=== PATIENT | female | born 1940 | race Caucasian/White ===

== ENCOUNTER 2021-08-12 10:20 | Inpatient (IN) | payer MEDICARE ==
--- NOTE | 2021-08-12 11:01 | XR ---
EXAMINATION TYPE: XR chest 2V DATE OF EXAM: 08/12/2021 COMPARISON: None available HISTORY: Confusion TECHNIQUE: Frontal and lateral views of the chest are obtained. FINDINGS: Prominent interstitial lung markings, possibly age-related versus COPD changes. Unremarkable lungs ot herwise. No sizable pleural effusion or definite pneumothorax. No gross cardiomegaly. Aortic atherosc lerotic calcification. Right glenohumeral arthroplasty. Degenerative changes of the left glenohumeral articulation. Osteopen ia. Resorption of the lateral end of the right clavicle versus separation at the acromioclavicular jaswant int. Degenerative changes of the thoracic spine. IMPRESSION: Age-related pulmonary changes versus COPD changes. No definite acute pulmonary abnormality identified . Incidental findings as described above.
--- NOTE | 2021-08-12 11:17 | CT ---
EXAMINATION TYPE: CT brain wo con DATE OF EXAM: 08/12/2021 COMPARISON: None available HISTORY: Altered mental status. CT DLP: 1060.4 mGycm Automated exposure control for dose reduction was used. TECHNIQUE: CT scan of the brain is performed without IV contrast administration. FINDINGS: Partial empty sella. Suspected small left posterior cerebellar infarct. Brain volume loss changes, li manolo age-related. Bilateral cerebral white matter hypodensities, likely representing mild chronic lino rovascular ischemic changes. Scattered arterial atherosclerotic calcifications. No acute intracranial hemorrhage. No gross acute cortical infarct. No midline shift, herniation or ve ntriculomegaly. Unremarkable patel-white matter differentiation, basal cisterns and CP angles. No mik s space-occupying lesion, vasogenic edema or mass effect. Unremarkable orbits. Chronic inflammatory changes of the maxillary sinuses with previous sinus surger y. Opacified left inferior mastoid air cells. No aggressive bone lesion. IMPRESSION: Left posterior cerebellar small infarct, likely chronic, please correlate clinically. No acute intrac ranial hemorrhage or gross acute cortical infarct. No space-occupying lesion by this nonenhanced CT s can. Incidental findings as described above.
[2021-08-12 11:40] LABS: Basophils % (A) 0 %; Eosinophils # (A) 0.2 k/uL (0-0.7); Eosinophils % (A) 2 %; HCT 32.5 % (34.0-46.0); HGB 10.3 gm/dL (11.4-16.0); Lymphocytes # (A) 0.8 k/uL (1.0-4.8); Lymphocytes % (A) 8 %; MCH 31.3 pg (25.0-35.0); MCHC 31.8 g/dL (31.0-37.0); MCV 98.4 fL (80.0-100.0); Monocytes # (A) 0.8 k/uL (0-1.0); Monocytes % (A) 8 %; Neutrophils # (A) 8.5 k/uL (1.3-7.7); Neutrophils % (A) 81 %; Platelet Count 218 k/uL (150-450); RDW 14.5 % (11.5-15.5); WBC 10.5 k/uL (3.8-10.6)
[2021-08-12 11:55] LABS: ALT 13 U/L (4-34); AST 25 U/L (14-36); African American GFR (CKD) 88 (>60 ml/min/1.73 sqM); Albumin 3.1 g/dL (3.5-5.0); Alcohol <10 mg/dL; Alkaline Phosphatase 58 U/L (38-126); Anion Gap 6 mmol/L; Blood Urea Nitrogen 22 mg/dL (7-17); Calcium 8.4 mg/dL (8.4-10.2); Carbon Dioxide 24 mmol/L (22-30); Chloride 104 mmol/L (98-107); Creatine Kinase 27 U/L (30-135); Glucose 168 mg/dL (74-99); Lipase 54 U/L (23-300); Non-African American GFR(CKD) 76 (>60 ml/min/1.73 sqM); Potassium 4.2 mmol/L (3.5-5.1); Sodium 134 mmol/L (137-145); Total Bilirubin 0.6 mg/dL (0.2-1.3)
--- NOTE | 2021-08-12 12:17 | ED ---
General Adult HPI - General Chief complaint: Recheck/Abnormal Lab/Rx Stated complaint: Abnormal Labs Time Seen by Provider: 08/12/21 10:26 Source: patient, family, RN notes reviewed Mode of arrival: wheelchair Limitations: no limitations - History of Present Illness Initial comments: 79-year-old female sent from the office after evaluation by Dr. Kennedy for evaluation of several issues she was seen at [facility] yesterday found have a leukocytosis additionally the patient has been seen and she is being chased by the level was try to kill her. She also complains of some lower abdominal pain. No fevers chills sweats she is complaining of a frontal headache she also is had diarrhea. Concern for C. diff. Appetite has been equivocal. The current complaints. - Related Data Allergies Allergy/AdvReac Type Severity Reaction Status Date / Time montelukast [From Singulair] Allergy Anaphylaxis Verified 08/12/21 10:29 sulfamethoxazole Allergy Anaphylaxis Verified 08/12/21 10:29 [From Bactrim] trimethoprim [From Bactrim] Allergy Anaphylaxis Verified 08/12/21 10:29 Review of Systems ROS Statement: Those systems with pertinent positive or pertinent negative responses have been documented in the HPI. ROS Other: All systems not noted in ROS Statement are negative. Past Medical History Past Medical History: Dementia, Hyperlipidemia History of Any Multi-Drug Resistant Organisms: None Reported Past Surgical History: Appendectomy, Orthopedic Surgery, Tonsillectomy, Tubal Ligation Additional Past Surgical History / Comment(s): sinus cancerous polyps Past Psychological History: No Psychological Hx Reported Smoking Status: Never smoker Past Alcohol Use History: None Reported Past Drug Use History: None Reported General Exam - General Exam Comments Initial Comments: This is a well-developed well-nourished awake alert female Limitations: no limitations General appearance: alert, in no apparent distress Head exam: Present: atraumatic, normocephalic, normal inspection Eye exam: Present: normal appearance, PERRL, EOMI. Absent: scleral icterus, conjunctival injection, periorbital swelling ENT exam: Present: mucous membranes dry Neck exam: Present: normal inspection. Absent: tenderness, meningismus, lymphadenopathy Respiratory exam: Present: normal lung sounds bilaterally. Absent: respiratory distress, wheezes, rales, rhonchi, stridor Cardiovascular Exam: Present: regular rate, normal rhythm, normal heart sounds. Absent: systolic murmur, diastolic murmur, rubs, gallop, clicks GI/Abdominal exam: Present: soft, tenderness (Tenderness over lower abdomen and left lower quadrant palpation no overt guarding rebound masses or bruits), normal bowel sounds. Absent: distended, guarding, rebound, rigid Rectal exam: Present: deferred Extremities exam: Present: normal inspection, full ROM, normal capillary refill. Absent: tenderness, pedal edema, joint swelling, calf tenderness Back exam: Present: normal inspection Neurological exam: Present: alert, oriented X3, CN II-XII intact Psychiatric exam: Present: anxious, other (Patient does state that the double was trying to kill her.) Skin exam: Present: warm, dry, intact, normal color. Absent: rash Course Vital Signs 08/12/21 08/12/21 08/12/21 10:22 11:28 12:00 Temperature 97.8 F Pulse Rate 64 61 57 L Respiratory 18 16 18 Rate Blood Pressure 93/58 114/43 102/55 O2 Sat by Pulse 99 98 95 Oximetry EKG Findings - EKG Results: EKG: interpreted by YOLI, sinus rhythm (Sinus bradycardia rate of 54. Interval 193 QRS duration 83 QT since QTC 440/425 moderate voltage criteria for LVH) Medical Decision Making - Medical Decision Making I did discuss findings with the patient family as well as with Dr. Storey patient will be admitted place an IV antibiotics addition due to the other complaints psychiatry will also be consulted. - Lab Data Result diagrams: 08/12/21 11:32 08/12/21 11:32 Lab Results 08/12/21 08/12/21 08/12/21 Range/Units 11:32 11:32 11:32 WBC 10.5 (3.8-10.6) k/uL RBC 3.30 L (3.80-5.40) m/uL Hgb 10.3 L (11.4-16.0) gm/dL Hct 32.5 L (34.0-46.0) % MCV 98.4 (80.0-100.0) fL MCH 31.3 (25.0-35.0) pg MCHC 31.8 (31.0-37.0) g/dL RDW 14.5 (11.5-15.5) % Plt Count 218 (150-450) k/uL MPV 8.0 Neutrophils % 81 % Lymphocytes % 8 % Monocytes % 8 % Eosinophils % 2 % Basophils % 0 % Neutrophils # 8.5 H (1.3-7.7) k/uL Lymphocytes # 0.8 L (1.0-4.8) k/uL Monocytes # 0.8 (0-1.0) k/uL Eosinophils # 0.2 (0-0.7) k/uL Basophils # 0.0 (0-0.2) k/uL Sodium 134 L (137-145) mmol/L Potassium 4.2 (3.5-5.1) mmol/L Chloride 104 (98-107) mmol/L Carbon Dioxide 24 (22-30) mmol/L Anion Gap 6 mmol/L BUN 22 H (7-17) mg/dL Creatinine 0.75 (0.52-1.04) mg/dL Est GFR (CKD-EPI)AfAm 88 (>60 ml/min/1.73 sqM) Est GFR (CKD-EPI)NonAf 76 (>60 ml/min/1.73 sqM) Glucose 168 H (74-99) mg/dL Calcium 8.4 (8.4-10.2) mg/dL Total Bilirubin 0.6 (0.2-1.3) mg/dL AST 25 (14-36) U/L ALT 13 (4-34) U/L Alkaline Phosphatase 58 (38-126) U/L Ammonia <9 (<30) umol/L Creatine Kinase 27 L (30-135) U/L Troponin I (0.000-0.034) ng/mL Total Protein 6.0 L (6.3-8.2) g/dL Albumin 3.1 L (3.5-5.0) g/dL Lipase 54 (23-300) U/L Serum Alcohol <10 mg/dL 08/12/21 Range/Units 11:32 WBC (3.8-10.6) k/uL RBC (3.80-5.40) m/uL Hgb (11.4-16.0) gm/dL Hct (34.0-46.0) % MCV (80.0-100.0) fL MCH (25.0-35.0) pg MCHC (31.0-37.0) g/dL RDW (11.5-15.5) % Plt Count (150-450) k/uL MPV Neutrophils % % Lymphocytes % % Monocytes % % Eosinophils % % Basophils % % Neutrophils # (1.3-7.7) k/uL Lymphocytes # (1.0-4.8) k/uL Monocytes # (0-1.0) k/uL Eosinophils # (0-0.7) k/uL Basophils # (0-0.2) k/uL Sodium (137-145) mmol/L Potassium (3.5-5.1) mmol/L Chloride (98-107) mmol/L Carbon Dioxide (22-30) mmol/L Anion Gap mmol/L BUN (7-17) mg/dL Creatinine (0.52-1.04) mg/dL Est GFR (CKD-EPI)AfAm (>60 ml/min/1.73 sqM) Est GFR (CKD-EPI)NonAf (>60 ml/min/1.73 sqM) Glucose (74-99) mg/dL Calcium (8.4-10.2) mg/dL Total Bilirubin (0.2-1.3) mg/dL AST (14-36) U/L ALT (4-34) U/L Alkaline Phosphatase (38-126) U/L Ammonia (<30) umol/L Creatine Kinase (30-135) U/L Troponin I 0.022 (0.000-0.034) ng/mL Total Protein (6.3-8.2) g/dL Albumin (3.5-5.0) g/dL Lipase (23-300) U/L Serum Alcohol mg/dL - Radiology Data Radiology results: report reviewed (Imaging reviewed evidence of diverticulitis and a CAT scan please see the complete results otherwise no definite acute changes seen on other imaging), image reviewed Disposition Clinical Impression: Acute diverticulitis, Abdominal pain, Delusional disorder, Dehydration Disposition: ADMITTED IP TO THIS HOSP Condition: Fair Referrals: Andrew Storey MD [Primary Care Provider] - 1-2 days
--- NOTE | 2021-08-12 13:09 | CT ---
EXAMINATION TYPE: CT abdomen pelvis w con DATE OF EXAM: 08/12/2021 COMPARISON: None available HISTORY: Abdominal pain CT DLP: 733.5 mGycm Automated exposure control for dose reduction was used. TECHNIQUE: Helical acquisition of images was performed from the lung bases through the pelvis. CONTRAST: Performed without Oral Contrast and with IV Contrast, patient injected with 100 mL of Isovue 300. FINDINGS: LUNG BASES: Bilateral basal pulmonary reticulations and minimal fibrotic changes. Cardiomegaly. Coron godfrey arterial calcifications. LIVER/GB: No significant abnormality is appreciated. PANCREAS: Atrophic SPLEEN: Splenic calcifications likely related to previous granulomatous infection. ADRENALS: No significant abnormality is seen. KIDNEYS: No significant abnormality is seen. FREE AIR: No free air is visualized. RETROPERITONEAL ADENOPATHY: None visualized PELVIC ADENOPATHY: None visualized. OSSEOUS STRUCTURES: Osteopenia. Degenerative changes of the lower thoracic and lumbar spine with ant erolisthesis of L4 over L5 and to a lesser extent L3 over L4. BOWEL: Suspected small sliding hiatal hernia. Unremarkable nondistended stomach and duodenum. Marked ly thickened superior aspect of the rectum and the sigmoid colon with significant surrounding fat str anding, reactive fluid and peritoneal reflection thickening with suspected adhesions between the sigm oid colon, left adnexa and the posterior aspect of the uterus. This is suggestive of acute diverticul itis of the sigmoid colon. No signs of perforation or definite abscess formation. Tiny cyst in each o vary which can be assessed by pelvic ultrasound. Inflammatory changes are seen surrounding the right ovary with possible adhesions between the right ovary and the adjacent small bowel loops. No evidence of bowel obstruction. Grossly unremarkable remainder of the colon. OTHER: Aortic atherosclerotic calcifications. Perirectal fluid is noted. IMPRESSION: Findings are suggestive of severe diverticulitis of the sigmoid colon with possible adhesions between the sigmoid colon, uterus and left adnexa. Suspected inflammatory changes surrounding the right ovar y/adnexa with possible adhesions between the right adnexa and the small bowel. No evidence of bowel o bstruction, signs of perforation or definite abscess formation. Recommend clinical correlation and saba rgical consultation. Other incidental findings as described above.
[2021-08-12] MEDS ORDERED: PIPERACILLIN-TAZOBACTAM 3.375 GM in SODIUM CHLORIDE 0.9% 100 ML IVPB STA (14:06)
[2021-08-12] MEDS ORDERED: NALOXONE 0.4 MG/ML 1 ML VIAL IV PRN (14:51)
[2021-08-12] MEDS ORDERED: HYDROmorphone 0.5 MG/0.5 ML SYRINGE IVP PRN (14:51)
[2021-08-12] MEDS ORDERED: ONDANSETRON 4 MG/2 ML VIAL IVP PRN (14:54)
[2021-08-12] MEDS ORDERED: ALPRAZolam 0.25 MG TAB PO PRN (18:09)
[2021-08-12] MEDS ORDERED: MELATONIN 3 MG TABLET PO SCH (21:00)
[2021-08-12] MEDS: QUEtiapine 25 MG TAB PO SCH (22:02)
[2021-08-12] MEDS: PANTOPRAZOLE 40 MG/10 ML VIAL IVP SCH (22:02)
[2021-08-12] MEDS: DONEPEZIL 10 MG TAB PO SCH (22:02)
[2021-08-12] MEDS: LOSARTAN 25 MG TAB PO SCH (22:03)
[2021-08-12] MEDS: PIPERACILLIN-TAZOBACTAM 3.375 GM in SODIUM CHLORIDE 0.9% 100 ML IVPB SCH (22:07)
[2021-08-12] MEDS: levETIRAcetam 500 MG TAB PO SCH (22:22)
[2021-08-12] MEDS: SODIUM CHLORIDE 0.9% 1,000 ML IV SCH (22:24)
[2021-08-13] MEDS: SODIUM CHLORIDE 0.9% 1,000 ML IV SCH ×3 (05:16→14:06)
[2021-08-13] MEDS: PIPERACILLIN-TAZOBACTAM 3.375 GM in SODIUM CHLORIDE 0.9% 100 ML IVPB SCH ×3 (05:38→22:31)
--- NOTE | 2021-08-13 07:34 | P.HPIM ---
History of Present Illness H&P Date: 08/12/21 HISTORY OF PRESENT ILLNESS 80-year-old female one of our office patient who was hospitalized at [facility] in July 08 to 07/17/2021 for intractable seizure who had also history of non-STEMI and chronic depression along with hypertension hyperlipidemia and worsening dementia. Patient apparently was discharged to [facility] custodial rehab was in up till 10 days ago when she was discharged home. Patient apparently has not been doing well since her discharge continued to have low- grade temperature with mild recurrent abdominal pain along with severe depression and acute psychosis on and off symptoms become a lot worse the last few days ended up been in the emergency department and seen in our office at least 2 times. She brought to the emergency department at [facility] on 07/26/2021 with worsening complain of psychosis, abdominal pain, altered mental status. Finding was consistent with negative CT of the brain, mildly elevated white blood cell which has been for the last few days abdominal CAT scan was performed and shows severe diverticulitis of the sigmoid with possible adhesion between the sigmoid: Uterus on the left adnexa and the small intestine. No real bowel obstruction was found at the time and no sign of perforation. She was started on IV antibiotic for diverticulitis patient will be seen psychiatry for her acute psychosis and worsening depression. I had long discussion with her and her while she was today [facility] department after her admission patient is tearing quite bed at the time she has in real estate psychosis feeling that she is obsessed by the devil, the also has concern that since her medication change since she left [facility] that she become more symptomatic and worsening psychosis. REVIEW OF SYSTEMS Constitutional: Low-grade temperature and chills, no night sweats. No weight change. No weakness, fatigue or lethargy. No daytime sleepiness. EENT: No headache. No blurred vision or double vision, no loss of vision. No loss of Hearing, no ringing in the ears, no dizziness. No nasal drainage or congestion. No epistaxis. No sore throat. Lungs: No shortness of breath, cough, no sputum production. No wheezing. Cardiovascular: No chest pain, no lower extremity edema. No palpitations. No paroxysmal nocturnal dyspnea. No orthopnea. No lightheadedness or dizziness. No syncopal episodes. Abdominal: Slight abdominal discomfort with nausea no diarrhea positive mild constipation and change in bowel habit no bloody bowel movement or tarry stool at this point. Genitourinary: No dysuria, increased frequency, urgency. No urinary retention. Musculoskeletal: No myalgias. No muscle weakness, no gait dysfunction, no frequent falls. No back pain. No neck pain. Integumentary: No wounds, no lesions. No rash or pruritus. No unusual bruising. No change in hair or nails. Neurologic: No aphasia. No facial droop. No change in mentation. No head injury. No headache. No paralysis. No paresthesia. Psychiatric: Severe depression with acute psychosis and worsening mental status. Endocrine: No abnormal blood sugars. No weight change. No excessive sweating or thirst. No cold intolerance. SOCIAL HISTORY She never smoked, no alcohol abuse, no marijuana use, she is and lives with her . She does not have any oxygen or updraft treatment at home and she is able to walk with limited help. FAMILY HISTORY She had 2 children one of them from [place], she had 3 siblings one brother from cancer one sister from Alzheimer disease and she still have a living sister doing well. Her mother at age 52 from multiple medical problem patient does not know anything about her father. PHYSICAL EXAMINATION Gen: This is a well-developed does not look in any respiratory distress. HEENT: Head is atraumatic, normocephalic. Pupils equal, round. Sclerae is anicte jovita. NECK: Supple. No JVD. No lymphadenopathy. No thyromegaly. LUNGS: Clear to auscultation. No wheezes or rhonchi. No intercostal retractions. HEART: Regular rate and rhythm. No murmur. ABDOMEN: Soft significant tenderness in the lower abdominal region and left lower quadrant area without rebound or rigidity. EXTREMITIES: No pedal edema. No calf tenderness. NEUROLOGICAL: Patient is awake, alert and oriented with significant confusion and psychosis.. Cranial nerves 2 through 12 are grossly intact. ASSESSMENT AND PLAN 1. Recurrent abdominal pain: Mostly acute diverticulitis, patient is symptomatic at this point will continue Zosyn and probably add Flagyl at this point continue Zofran and PPI as well. 2 newly diagnosed with seizure: Patient apparently has been doing well on Keppra 500 mg twice a day and had seen Dr. Seymour neurology has an appoint with him in the next week. 3 worsening dementia: Has been on Donepazil 10 mg a day we'll continue medicati on at this point. 4 history of non-STEMI: Has been on Plavix, aspirin, losartan, metoprolol and statin. 5 severe acute psychosis with worsening mental status: Not a clear etiology could be the change medication ration at this point has been on Seroquel along with alprazolam continue medication but will consult psych if patient symptoms become slightly but worsening she might require an inpatient psych service. 6 hyperlipidemia: Continue atorvastatin 10 mg a day. 7 hypertension: Continue patient on losartan and metoprolol. 8 severe GERD: Has been on pantoprazole will continue IV pantoprazole for now. 9 GI prophylaxis: Patient will be on pantoprazole. 10 DVT prophylaxis: Patient will be on heparin subcutaneous. 11. COVID-19 testing was negative. Patient will be admitted to the hospital for a minimum of 2 night stay. Past Medical History Past Medical History: Dementia, Hyperlipidemia History of Any Multi-Drug Resistant Organisms: None Reported Past Surgical History: Appendectomy, Orthopedic Surgery, Tonsillectomy, Tubal Ligation Additional Past Surgical History / Comment(s): sinus cancerous polyps Past Psychological History: No Psychological Hx Reported Smoking Status: Never smoker Past Alcohol Use History: None Reported Past Drug Use History: None Reported Medications and Allergies Home Medications Medication Instructions Recorded Confirmed Type ALPRAZolam [Xanax] 0.25 mg PO BID PRN 08/12/21 08/12/21 History Aspirin EC [Ecotrin Low Dose] 81 mg PO DAILY 08/12/21 08/12/21 History Atorvastatin Calcium [Lipitor] 10 mg PO DAILY 08/12/21 08/12/21 History Clopidogrel Bisulfate [Plavix] 75 mg PO DAILY 08/12/21 08/12/21 History Donepezil [Aricept] 10 mg PO HS 08/12/21 08/12/21 History Fluticasone Nasal [place] [Flonase 1 spr EA NOSTRIL DAILY 08/12/21 08/12/21 History Nasal [place]] Losartan [Cozaar] 25 mg PO BID 08/12/21 08/12/21 History Melatonin 6 mg PO HS 08/12/21 08/12/21 History Metoprolol Succinate [Toprol XL] 25 mg PO DAILY 08/12/21 08/12/21 History Multivitamins, Thera [Multivitamin 1 tab PO DAILY 08/12/21 08/12/21 History (formulary)] QUEtiapine FUMARATE [SEROquel] 12.5 mg PO BID 08/12/21 08/12/21 History levETIRAcetam [Keppra] 500 mg PO BID 08/12/21 08/12/21 History Allergies Allergy/AdvReac Type Severity Reaction Status Date / Time montelukast [From Singulair] Allergy Anaphylaxis Verified 08/12/21 10:29 sulfamethoxazole Allergy Anaphylaxis Verified 08/12/21 10:29 [From Bactrim] trimethoprim [From Bactrim] Allergy Anaphylaxis Verified 08/12/21 10:29 Physical Exam Vitals: Vital Signs Temp Pulse Resp BP Pulse Ox 08/12/21 16:00 66 18 98/48 95 08/12/21 15:00 62 16 108/68 98 08/12/21 12:00 57 L 18 102/55 95 08/12/21 11:28 61 16 114/43 98 08/12/21 10:22 97.8 F 64 18 93/58 99 Intake and Output 08/12/21 08/12/21 08/12/21 06:59 14:59 22:59 Other: Weight 65.771 kg Results CBC & Chem 7: 08/12/21 11:32 08/12/21 11:32 Labs: Abnormal Lab Results - Last 24 Hours (Table) 08/12/21 08/12/21 Range/Units 11:32 11:32 RBC 3.30 L (3.80-5.40) m/uL Hgb 10.3 L (11.4-16.0) gm/dL Hct 32.5 L (34.0-46.0) % Neutrophils # 8.5 H (1.3-7.7) k/uL Lymphocytes # 0.8 L (1.0-4.8) k/uL Sodium 134 L (137-145) mmol/L BUN 22 H (7-17) mg/dL Glucose 168 H (74-99) mg/dL Creatine Kinase 27 L (30-135) U/L Total Protein 6.0 L (6.3-8.2) g/dL Albumin 3.1 L (3.5-5.0) g/dL
[2021-08-13] MEDS: PANTOPRAZOLE 40 MG/10 ML VIAL IVP SCH ×2 (08:52→22:33)
[2021-08-13] MEDS: HEPARIN SODIUM,PORCINE/PF 5,000 UNIT/0.5 ML SYRINGE SQ SCH ×2 (08:53→22:34)
[2021-08-13] MEDS: QUEtiapine 25 MG TAB PO SCH ×2 (08:53→22:34)
[2021-08-13] MEDS: ASPIRIN 81 MG PO SCH (08:53)
[2021-08-13] MEDS: levETIRAcetam 500 MG TAB PO SCH ×2 (08:53→22:34)
[2021-08-13] MEDS: MULTIVITAMINS, THERA 1 EACH TAB PO SCH (08:53)
[2021-08-13] MEDS: ATORVASTATIN 10 MG TAB PO SCH (08:53)
[2021-08-13] MEDS: CLOPIDOGREL 75 MG TAB PO SCH (08:53)
[2021-08-13] MEDS: FLUTICASONE 50MCG/SPRAY NASAL 16GM EA NOSTRIL SCH (08:54)
[2021-08-13] MEDS: METOPROLOL SUCCINATE (ER) 25 MG TAB.ER.24H PO SCH (08:54)
[2021-08-13] MEDS: LOSARTAN 25 MG TAB PO SCH ×2 (08:54→22:34)
--- NOTE | 2021-08-13 09:53 | P.PN ---
Subjective Progress Note Date: 08/13/21 HISTORY OF PRESENT ILLNESS 80-year-old female one of our office patient who was hospitalized at [facility] in July 08 to 07/17/2021 for intractable seizure who had also history of non-STEMI and chronic depression along with hypertension hyperlipidemia and worsening dementia. Patient apparently was discharged to [facility] assisted rehab was in up till 10 days ago when she was discharged home. Patient apparently has not been doing well since her discharge continued to have low- grade temperature with mild recurrent abdominal pain along with severe depression and acute psychosis on and off symptoms become a lot worse the last few days ended up been in the emergency department and seen in our office at least 2 times. She brought to the emergency department at [facility] on 07/26/2021 with worsening complain of psychosis, abdominal pain, altered mental status. Finding was consistent with negative CT of the brain, mildly elevated white blood cell which has been for the last few days abdominal CAT scan was performed and shows severe diverticulitis of the sigmoid with possible adhesion between the sigmoid: Uterus on the left adnexa and the small intestine. No real bowel obstruction was found at the time and no sign of perforation. She was started on IV antibiotic for diverticulitis patient will be seen psychiatry for her acute psychosis and worsening depression. I had long discussion with her and her while she was [facility] her [facility] patient is tearing quite bed at the time she has in real estate psychosis feeling that she is obsessed by the devil, the also has concern that since her medication change since she left [facility] that she become more symptomatic and worsening psychosis. 08/13: The patient has a sitter at the bedside. She apparently has been pulling her hair and periodic uncooperativeness. She is on IV Zosyn for diverticulitis and Flagyl will be added. Full liquid diet will be started and advance. She still has some left lower quadrant tenderness. Psychiatry is on consult and we anticipate the patient will be medically ready for transfer to mental health unit tomorrow. Patient has been afebrile, heart rate in the 60s, blood pressure 119/57, pulse ox 94% on room air. Repeat blood work will be ordered for tomorrow. REVIEW OF SYSTEMS Constitutional: Low-grade temperature and chills, no night sweats. No weight change. No weakness, fatigue or lethargy. No daytime sleepiness. EENT: No headache. No blurred vision or double vision, no loss of vision. No loss of Hearing, no ringing in the ears, no dizziness. No nasal drainage or congestion. No epistaxis. No sore throat. Lungs: No shortness of breath, cough, no sputum production. No wheezing. Cardiovascular: No chest pain, no lower extremity edema. No palpitations. No paroxysmal nocturnal dyspnea. No orthopnea. No lightheadedness or dizziness. No syncopal episodes. Abdominal: Left lower quadrant abdominal discomfort no nausea no diarrhea positive mild constipation and change in bowel habit no bloody bowel movement or tarry stool at this point. Genitourinary: No dysuria, increased frequency, urgency. No urinary retention. Musculoskeletal: No myalgias. No muscle weakness, no gait dysfunction, no frequent falls. No back pain. No neck pain. Integumentary: No wounds, no lesions. No rash or pruritus. No unusual bruising. No change in hair or nails. Neurologic: No aphasia. No facial droop. No change in mentation. No head injury. No headache. No paralysis. No paresthesia. Psychiatric: Severe depression with acute psychosis and worsening mental status. Endocrine: No abnormal blood sugars. No weight change. No excessive sweating or thirst. No cold intolerance. PHYSICAL EXAMINATION Gen: This is a well-developed does not look in any respiratory distress. Sitter at bedside. HEENT: Head is atraumatic, normocephalic. Pupils equal, round. Sclerae is anicteric. NECK: Supple. No JVD. No lymphadenopathy. No thyromegaly. LUNGS: Clear to auscultation. No wheezes or rhonchi. No intercostal retractions. HEART: Regular rate and rhythm. No murmur. ABDOMEN: Soft significant tenderness in the lower abdominal region and left lower quadrant area without rebound or rigidity. EXTREMITIES: No pedal edema. No calf tenderness. NEUROLOGICAL: Patient is awake, alert and oriented with significant confusion and psychosis. Cranial nerves 2 through 12 are grossly intact. ASSESSMENT AND PLAN 1. Recurrent abdominal pain: Mostly acute diverticulitis, continue patient on Zosyn and add Flagyl at this point continue Zofran and PPI as well. Patient will be started on full liquid diet and advance. 2 newly diagnosed with seizure: Patient apparently has been doing well on Keppra 500 mg twice a day and had seen Dr. Seymour neurology has an appoint with him in the next week. 3 worsening dementia: Has been on Donepazil 10 mg a day we'll continue medication at this point. 4 history of non-STEMI: Has been on Plavix, aspirin, losartan, metoprolol and statin. 5 severe acute psychosis with worsening mental status: Not a clear etiology could be the change medication ration at this point has been on Seroquel along with alprazolam continue medication but will consult psych if patient symptoms become slightly but worsening she might require an inpatient psych service. Most likely, patient will be medically stable for transfer to the mental health unit tomorrow. 6 hyperlipidemia: Continue atorvastatin 10 mg a day. 7 hypertension: Continue patient on losartan and metoprolol. 8 severe GERD: Has been on pantoprazole will continue IV pantoprazole for now. 9 GI prophylaxis: Patient will be on pantoprazole. 10 DVT prophylaxis: Patient will be on heparin subcutaneous. 11. COVID-19 testing was negative. DISCHARGE PLAN U TUESDAY Impression and plan of care have been directed as dictated by the signing physician. Joanne Cohen nurse practitioner acting as scribe for signing physici an. Objective - Vital Signs Vital signs: Vital Signs Temp 98.7 F 08/13/21 07:44 Pulse 62 08/13/21 07:44 Resp 18 08/13/21 07:44 BP 119/57 08/13/21 07:44 Pulse Ox 94 L 08/13/21 07:44 Intake & Output 08/12/21 08/13/21 08/13/21 18:59 06:59 18:59 Weight 65.771 kg 65.771 kg Other: Voiding Method Diaper # Voids 1 - Labs CBC & Chem 7: 08/12/21 11:32 08/12/21 11:32 Labs: Abnormal Lab Results - Last 24 Hours (Table) 08/12/21 08/12/21 Range/Units 11:32 11:32 RBC 3.30 L (3.80-5.40) m/uL Hgb 10.3 L (11.4-16.0) gm/dL Hct 32.5 L (34.0-46.0) % Neutrophils # 8.5 H (1.3-7.7) k/uL Lymphocytes # 0.8 L (1.0-4.8) k/uL Sodium 134 L (137-145) mmol/L BUN 22 H (7-17) mg/dL Glucose 168 H (74-99) mg/dL Creatine Kinase 27 L (30-135) U/L Total Protein 6.0 L (6.3-8.2) g/dL Albumin 3.1 L (3.5-5.0) g/dL
[2021-08-13] MEDS: metroNIDAZOLE-NS PMX 500 MG in SALINE 1 100ML.BAG IVPB SCH ×2 (11:00→18:22)
[2021-08-13] MEDS ORDERED: QUEtiapine 25 MG TAB PO STA (13:03)
[2021-08-13] MEDS ORDERED: busPIRone HCl 5 MG TAB PO PRN (13:03)
--- NOTE | 2021-08-13 13:15 | P.CN ---
Psychiatric Consult - . Consult date: 08/13/21 Consult:: 08/13/21 13:02 IDENTIFYING DATA: This patient is a 80-year-old female with a history of dementia, currently lives with her and house has 2 kids. REASON FOR REFERRAL: Psychiatry was consulted for "delusional disorder". HISTORY OF PRESENT ILLNESS: The patient presented to the hospital on 08/12 as she was sent from Dr. Alcaraz office for apparent leukocytosis, elevated neutrophil count. When patient was evaluated in the ER patient was apparently believing that she is being chased and she was going to be killed. She was admitted medically for dehydration and abdominal pain and diverticulosis. She is put on IV antibiotics at this time. She had a sitter at the bedside and her was also at the bedside with her. Bronc Buster spoke with patient's briefly outside he states that patient has not been sleeping well and "cries a lot". He also stated the patient has been talking a lot. Patient was evaluated by service writer today. She appeared to be somewhat irritable and difficult to redirect during conversation. She claims that she is feeling "sick of life" and had some inappropriate answers to questions. She talked about her "body falling apart" and claims that she felt that "something was coming after me to kill me" however was not able to specify what exactly this was. She states that "it's whatever". She also claims that she is feeling depressed from being in the hospital and did claim that she has some anxiety. She knows that the year is 2021 and that we are in July however does not know the date. She does know her name is not know the president. She believes that she is in the "nuthouse". She was labile at times during the interview and tearful was agreeable to treatment. She states that her sleep has been on and off and appetite as been fairly poor . At this time patient denies any suicidal or homical ideations, intent or plan. Patient denies any auditory, visual hallucinations. Patients admits to using no recreational drugs or cigarettes. PAST PSYCHIATRIC HISTORY: Patient has a a history of dementia. Patient is currently on Seroquel, melatonin, Aricept and Xanax when necessary. She states that she may have been admitted psychiatrically in the past and did state that she has had "several shock therapies" before. Patient denies any psychiatric outpatient follow-up. Patient denies any history of suicide attempts in the past. Past Medical History: Dementia, Hyperlipidemia History of Any Multi-Drug Resistant Organisms: None Reported ALLERGIES: as per EMR. CHEMICAL DEPENDENCY HISTORY: as per HPI. FAMILY PSYCHIATRIC/SUBSTANCE USE HISTORY: denies SOCIAL HISTORY: Patient was born and raised in [place]. She states that she completed high school. 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 She currently lives with her in a house and they have 2 kids. MENTAL STATUS EXAM: General Appearance: Patient appears to be thin, elderly, stated age is alert, difficult to redirect and irritable at times. Patient appears to have fair hygiene and grooming wearing hospital gown with poor eye contact. Behavior: Patient is calmly lying in bed without any agitated behavior. Irritable and labile at times. Speech: Patient's speech is fluent and nonpressured. [place] Mood/Affect: Patient reports their mood is "depressed", affect is congruent Suicidality/Homicidality: Patient denies having any suicidal or homicidal ideation intent or plan. Perceptions: Patient denies any visual hallucinations and denies any auditory hallucinations Though content/process: Paranoia, illogical at times. Made some bizarre statements. [place]. Memory and concentration: AOX1-2, poor attention span. Cannot spell "WORLD" backwards Judgment and insight: Chronically poor IMPRESSIONS: Psychosis unspecified History of dementia PLAN: -At this time psychiatry will continue to follow to see if patient will require or not inpt melodie psych placement. -Delirium precautions recommended with patient including - avoiding use of narcotics and TRAVELING ACCOUNTANT sedatives, limit anticholinergic medications when possible, frequent re-orientation, minimize use of restraints, open window shades during the day and close them at night -Would recommend the following medication changes/additions: Increase Seroquel to 12.5 daily +25 mg daily at bedtime for mood stabilization/psychosis/sleep. We'll give an extra dose of 12.5 now. Start Cymbalta 20 mg daily for mood/anxiety. Increased melatonin to 10 mg daily at bedtime. Continue with Aricept as prescribed. Discontinue Xanax as this may cause more confusion and possibly falls. Added BuSpar 7.5 mg 3 times a day when necessary for anxiety. -Continue 1:1 sitter for safety -shed workers supervisor to provide patient with outpatient mental health/psychiatry resources for appropriate follow up upon discharge -Will continue to follow along -Please contact with any questions. 08/13/21 13:06
[2021-08-13] MEDS: DULoxetine HCL 20 MG CAPSULE.DR PO SCH (14:04)
[2021-08-13] MEDS: DONEPEZIL 10 MG TAB PO SCH (22:34)
[2021-08-13] MEDS: MELATONIN 5 MG TABLET PO SCH (22:34)
[2021-08-14] MEDS: metroNIDAZOLE-NS PMX 500 MG in SALINE 1 100ML.BAG IVPB SCH ×2 (01:14→08:22)
[2021-08-14] MEDS: SODIUM CHLORIDE 0.9% 1,000 ML IV SCH ×2 (06:04→08:26)
[2021-08-14] MEDS: PIPERACILLIN-TAZOBACTAM 3.375 GM in SODIUM CHLORIDE 0.9% 100 ML IVPB SCH (06:04)
[2021-08-14] MEDS: METOPROLOL SUCCINATE (ER) 25 MG TAB.ER.24H PO SCH (08:23)
[2021-08-14] MEDS: LOSARTAN 25 MG TAB PO SCH ×2 (08:23→22:02)
[2021-08-14] MEDS: HEPARIN SODIUM,PORCINE/PF 5,000 UNIT/0.5 ML SYRINGE SQ SCH ×2 (08:23→22:01)
[2021-08-14] MEDS: QUEtiapine 25 MG TAB PO SCH ×2 (08:23→22:02)
[2021-08-14] MEDS: CLOPIDOGREL 75 MG TAB PO SCH (08:23)
[2021-08-14] MEDS: MULTIVITAMINS, THERA 1 EACH TAB PO SCH (08:23)
[2021-08-14] MEDS: ASPIRIN 81 MG PO SCH (08:23)
[2021-08-14] MEDS: ATORVASTATIN 10 MG TAB PO SCH (08:24)
[2021-08-14] MEDS: DULoxetine HCL 20 MG CAPSULE.DR PO SCH (08:24)
[2021-08-14] MEDS: PANTOPRAZOLE 40 MG/10 ML VIAL IVP SCH ×2 (08:25→22:10)
[2021-08-14] MEDS: levETIRAcetam 500 MG TAB PO SCH ×2 (08:25→23:04)
[2021-08-14] MEDS: FLUTICASONE 50MCG/SPRAY NASAL 16GM EA NOSTRIL SCH (08:25)
[2021-08-14 08:43] LABS: HCT 26.4 % (37.2-46.3); HGB 8.4 g/dL (12.0-15.0); MCH 30.5 pg (27.0-32.0); MCHC 31.8 g/dL (32.0-37.0); Mean Platelet Volume 10.2 fL (9.5-12.2); NRBC Per 100 WBC 0 /100 WBCS (0.0-0.0); Platelet Count 212 X 10*3/uL (140-440); RBC 2.75 X 10*6/uL (4.10-5.20); RDW 14.5 % (11.5-14.5); WBC 9.28 X 10*3/uL (4.50-10.00)
[2021-08-14 08:50] LABS: African American GFR (CKD) 81.3 (60.0-200.0); Albumin 2.9 g/dL (3.8-4.9); Albumin/Globulin Ratio 1.45 (1.60-3.17); Anion Gap 11.4 mmol/L (10.00-18.00); BUN/Creat Ratio 19.13 Ratio (12.00-20.00); Blood Urea Nitrogen 15.3 mg/dL (9.0-27.0); Calcium 8.1 mg/dL (8.7-10.3); Carbon Dioxide 19.6 mmol/L (20.0-27.5); Non-African American GFR(CKD) 70.1 (60.0-200.0); Potassium 4.1 mmol/L (3.5-5.5); Total Bilirubin 0.4 mg/dL (0.30-1.20); Total Protein 4.9 g/dL (6.2-8.2)
--- NOTE | 2021-08-14 12:28 | P.PN ---
Subjective Progress Note Date: 08/14/21 HISTORY OF PRESENT ILLNESS 80-year-old female one of our office patient who was hospitalized at [facility] in July 08 to 07/17/2021 for intractable seizure who had also history of non-STEMI and chronic depression along with hypertension hyperlipidemia and worsening dementia. Patient apparently was discharged to [facility] was in up till 10 days ago when she was discharged home. Patient apparently has not been doing well since her discharge continued to have low- grade temperature with mild recurrent abdominal pain along with severe depression and acute psychosis on and off symptoms become a lot worse the last few days ended up been in the emergency department and seen in our office at least 2 times. She brought to the emergency department at [facility] on 07/26/2021 with worsening complain of psychosis, abdominal pain, altered mental status. Finding was consistent with negative CT of the brain, mildly elevated white blood cell which has been for the last few days abdominal CAT scan was performed and shows severe diverticulitis of the sigmoid with possible adhesion between the sigmoid: Uterus on the left adnexa and the small intestine. No real bowel obstruction was found at the time and no sign of perforation. She was started on IV antibiotic for diverticulitis patient will be seen psychiatry for her acute psychosis and worsening depression. I had long discussion with her and her while she was [facility] her [facility] patient is tearing quite bed at the time she has in real estate psychosis feeling that she is obsessed by the devil, the also has concern that since her medication change since she left [facility] that she become more symptomatic and worsening psychosis. 08/13: The patient has a sitter at the bedside. She apparently has been pulling her hair and periodic uncooperativeness. She is on IV Zosyn for diverticulitis and Flagyl will be added. Full liquid diet will be started and advance. She still has some left lower quadrant tenderness. Psychiatry is on consult and we anticipate the patient will be medically ready for transfer to mental health unit tomorrow. Patient has been afebrile, heart rate in the 60s, blood pressure 119/57, pulse ox 94% on room air. Repeat blood work will be ordered for tomorrow. 08/14: and son visited yesterday. Patient is tolerating diet and will be advanced to regular diet. She is on IV Zosyn and Flagyl which we'll transition to oral Flagyl only and plan to continue this in the outpatient setting. Patient was seen by psychiatry yesterday and sitter remains at the bedside. Patient continues to have psychosis. Plan for transfer to mental health unit. Patient is currently medically stable. REVIEW OF SYSTEMS Constitutional: Low-grade temperature and chills, no night sweats. No weight change. No weakness, fatigue or lethargy. No daytime sleepiness. EENT: No headache. No blurred vision or double vision, no loss of vision. No loss of Hearing, no ringing in the ears, no dizziness. No nasal drainage or congestion. No epistaxis. No sore throat. Lungs: No shortness of breath, cough, no sputum production. No wheezing. Cardiovascular: No chest pain, no lower extremity edema. No palpitations. No paroxysmal nocturnal dyspnea. No orthopnea. No lightheadedness or dizziness. No syncopal episodes. Abdominal: Left lower quadrant abdominal discomfort no nausea no diarrhea positive mild constipation and change in bowel habit no bloody bowel movement or tarry stool at this point. Genitourinary: No dysuria, increased frequency, urgency. No urinary retention. Musculoskeletal: No myalgias. No muscle weakness, no gait dysfunction, no frequent falls. No back pain. No neck pain. Integumentary: No wounds, no lesions. No rash or pruritus. No unusual bruising. No change in hair or nails. Neurologic: No aphasia. No facial droop. No change in mentation. No head injury. No headache. No paralysis. No paresthesia. Psychiatric: Severe depression with acute psychosis and worsening mental status. Endocrine: No abnormal blood sugars. No weight change. No excessive sweating or thirst. No cold intolerance. PHYSICAL EXAMINATION Gen: This is a well-developed does not look in any respiratory distress. Sitter at bedside. HEENT: Head is atraumatic, normocephalic. Pupils equal, round. Sclerae is anicteric. NECK: Supple. No JVD. No lymphadenopathy. No thyromegaly. LUNGS: Clear to auscultation. No wheezes or rhonchi. No intercostal retractions. HEART: Regular rate and rhythm. No murmur. ABDOMEN: Soft significant tenderness in the lower abdominal region and left lower quadrant area without rebound or rigidity. EXTREMITIES: No pedal edema. No calf tenderness. NEUROLOGICAL: Patient is awake, alert and oriented with significant confusion and psychosis. Cranial nerves 2 through 12 are grossly intact. ASSESSMENT AND PLAN 1. Recurrent abdominal pain: Mostly acute diverticulitis, continue patient on Zosyn and add Flagyl at this point continue Zofran and PPI as well. Patient will be started on full liquid diet and advance. 2 newly diagnosed with seizure: Patient apparently has been doing well on Keppra 500 mg twice a day and had seen Dr. Seymour neurology has an appoint with him in the next week. 3 worsening dementia: Has been on Donepazil 10 mg a day we'll continue medication at this point. 4 history of non-STEMI: Has been on Plavix, aspirin, losartan, metoprolol and statin. 5 severe acute psychosis with worsening mental status: Not a clear etiology could be the change medication ration at this point has been on Seroquel along with alprazolam continue medication but will consult psych if patient symptoms become slightly but worsening she might require an inpatient psych service. Most likely, patient will be medically stable for transfer to the mental health unit tomorrow. 6 hyperlipidemia: Continue atorvastatin 10 mg a day. 7 hypertension: Continue patient on losartan and metoprolol. 8 severe GERD: Has been on pantoprazole will continue IV pantoprazole for now. 9 GI prophylaxis: Patient will be on pantoprazole. 10 DVT prophylaxis: Patient will be on heparin subcutaneous. 11. COVID-19 testing was negative. DISCHARGE PLAN [facility]HU TODAY Impression and plan of care have been directed as dictated by the signing physician. Joanne Cohen nurse practitioner acting as scribe for signing physician. Objective - Vital Signs Vital signs: Vital Signs Temp 98.4 F 08/14/21 08:00 Pulse 69 08/14/21 08:00 Resp 17 08/14/21 08:00 BP 104/56 08/14/21 08:00 Pulse Ox 94 L 08/14/21 08:00 Intake & Output 08/13/21 08/14/21 08/14/21 18:59 06:59 18:59 Other: Voiding Method Diaper Diaper Diaper Incontinent Incontinent # Voids 4 # Bowel Movements 2 2 - Labs CBC & Chem 7: 08/14/21 06:20 08/14/21 06:20 Labs: Abnormal Lab Results - Last 24 Hours (Table) 08/14/21 08/14/21 Range/Units 06:20 06:20 RBC 2.75 L (4.10-5.20) X 10*6/uL Hgb 8.4 L (12.0-15.0) g/dL Hct 26.4 L (37.2-46.3) % MCHC 31.8 L (32.0-37.0) g/dL Carbon Dioxide 19.6 L (20.0-27.5) mmol/L Calcium 8.1 L (8.7-10.3) mg/dL Total Protein 4.9 L (6.2-8.2) g/dL Albumin 2.9 L (3.8-4.9) g/dL Albumin/Globulin Ratio 1.45 L (1.60-3.17) g/dL
--- NOTE | 2021-08-14 12:30 | P.DS ---
Providers Date of admission: 08/12/21 14:51 Expected date of discharge: 08/14/21 Attending physician: Andrew Storey Consults: 08/12/21 14:52 Consult Physician Routine Consulting Provider: Sincere Gallo Consult Reason/Comments: Delusional disorder Do you want consulting provider notified?: Yes Primary care physician: [facility] Course: HISTORY OF PRESENT ILLNESS 80-year-old female one of our office patient who was hospitalized at [facility] in July 08 to 07/17/2021 for intractable seizure who had also history of non-STEMI and chronic depression along with hypertension hyperlipidemia and worsening dementia. Patient apparently was discharged to [facility] intermediate rehab was in up till 10 days ago when she was discharged home. Patient apparently has not been doing well since her discharge continued to have low- grade temperature with mild recurrent abdominal pain along with severe depression and acute psychosis on and off symptoms become a lot worse the last few days ended up been in the emergency department and seen in our office at least 2 times. She brought to the emergency department at [facility] on 07/26/2021 with worsening complain of psychosis, abdominal pain, altered mental status. Finding was consistent with negative CT of the brain, mildly elevated white blood cell which has been for the last few days abdominal CAT scan was performed and shows severe diverticulitis of the sigmoid with possible adhesion between the sigmoid: Uterus on the left adnexa and the small intestine. No real bowel obstruction w as found at the time and no sign of perforation. She was started on IV antibiotic for diverticulitis patient will be seen psychiatry for her acute psychosis and worsening depression. I had long discussion with her and her while she was today demurs department after her admission patient is tearing quite bed at the time she has in real estate psychosis feeling that she is obsessed by the devil, the also has concern that since her medication change since she left [facility] that she become more symptomatic and worsening psychosis. 08/13: The patient has a sitter at the bedside. She apparently has been pulling her hair and periodic uncooperativeness. She is on IV Zosyn for diverticulitis and Flagyl will be added. Full liquid diet will be started and advance. She still has some left lower quadrant tenderness. Psychiatry is on consult and we anticipate the patient will be medically ready for transfer to mental health unit tomorrow. Patient has been afebrile, heart rate in the 60s, blood pressure 119/57, pulse ox 94% on room air. Repeat blood work will be ordered for tomorrow. 08/14: and son visited yesterday. Patient is tolerating diet and will be advanced to regular diet. She is on IV Zosyn and Flagyl which we'll transition to oral Flagyl only and plan to continue this in the outpatient setting. Patient was seen by psychiatry yesterday and sitter remains at the bedside. Patient continues to have psychosis. Plan for transfer to mental health unit. Patient is currently medically stable. DISCHARGE DIAGNOSES 1. Recurrent abdominal pain secondary to acute diverticulitis 2 newly diagnosed with seizure 3 worsening dementia 4 history of non-STEMI 5 severe acute psychosis with worsening mental status 6 hyperlipidemia 7 hypertension 8 severe GERD. DISCHARGE PLAN MHU TODAY Greater than 35 minutes was utilized and coordinating patient's discharge. Impression and plan of care have been directed as dictated by the signing physician. Joanne Cohen nurse practitioner acting as scribe for signing physician. Patient Condition at Discharge: Stable Plan - Discharge Summary Discharge Rx Participant: No New Discharge Prescriptions: New DULoxetine HCL [Cymbalta] 20 mg PO DAILY #30 cap busPIRone HCl [Buspar] 5 mg PO BID #60 tab metroNIDAZOLE [Flagyl] 500 mg PO TID #21 tab QUEtiapine [SEROquel] 25 mg PO HS #45 tab Continue Multivitamins, Thera [Multivitamin (formulary)] 1 tab PO DAILY Metoprolol Succinate [Toprol XL] 25 mg PO DAILY Atorvastatin Calcium [Lipitor] 10 mg PO DAILY levETIRAcetam [Keppra] 500 mg PO BID Losartan [Cozaar] 25 mg PO BID Fluticasone Nasal [place] [Flonase Nasal [place]] 1 spr EA NOSTRIL DAILY Donepezil [Aricept] 10 mg PO HS Melatonin 6 mg PO HS Clopidogrel Bisulfate [Plavix] 75 mg PO DAILY Aspirin EC [Ecotrin Low Dose] 81 mg PO DAILY Discontinued QUEtiapine FUMARATE [SEROquel] 12.5 mg PO BID ALPRAZolam [Xanax] 0.25 mg PO BID PRN PRN Reason: Anxiety Discharge Medication List Aspirin EC [Ecotrin Low Dose] 81 mg PO DAILY 08/12/21 [History] Atorvastatin Calcium [Lipitor] 10 mg PO DAILY 08/12/21 [History] Clopidogrel Bisulfate [Plavix] 75 mg PO DAILY 08/12/21 [History] Donepezil [Aricept] 10 mg PO HS 08/12/21 [History] Fluticasone Nasal [place] [Flonase Nasal [place]] 1 spr EA NOSTRIL DAILY 08/12/21 [History] Losartan [Cozaar] 25 mg PO BID 08/12/21 [History] Melatonin 6 mg PO HS 08/12/21 [History] Metoprolol Succinate [Toprol XL] 25 mg PO DAILY 08/12/21 [History] Multivitamins, Thera [Multivitamin (formulary)] 1 tab PO DAILY 08/12/21 [History] levETIRAcetam [Keppra] 500 mg PO BID 08/12/21 [History] DULoxetine HCL [Cymbalta] 20 mg PO DAILY #30 cap 08/14/21 [Rx] QUEtiapine [SEROquel] 25 mg PO HS #45 tab 08/14/21 [Rx] busPIRone HCl [Buspar] 5 mg PO BID #60 tab 08/14/21 [Rx] metroNIDAZOLE [Flagyl] 500 mg PO TID #21 tab 08/14/21 [Rx] Follow up Appointment(s)/Referral(s): [facility], [NON-STAFF] - Andrew Storey MD [Primary Care Provider] - 1 Week (Office closed at time of discharge. Please call on Tuesday to arrange follow up appointment) Patient Instructions/Handouts: Diverticulitis (DC) Discharge Disposition: HOME WITH HOME HEALTH SERVICES
--- NOTE | 2021-08-14 14:16 | P.PN ---
Progress Note - Text Progress Note Date: 08/14/21 Interval History: Patient was seen today for psychiatric follow-up. Patient's daughter states the patient is more directable and cooperative today and is not tearful or irritable. She also states that patient slept fairly last night. Patient was seen today laying in her bed and agreeable to seek a scenario writer. She continues to have a sitter at her side. She states that she is still worried about her health condition however is not endorsing paranoia. She states that she feels like something bad might happen to her. She appears to have a clear thought process however is tangential at times. Denying any mood swings and patient is more cooperative not irritable. She is denying any anxiety or depression today. She states that she wants to live for her family and would never harm herself. She also spoke about God as a protective factor. She is not responding to any internal stimuli . At this time patient denies any suicidal or homical ideations, intent or plan. Patient denies any auditory, visual hallucinations. Patient denies any side effects from the medications and has been compliant with meds. Mental Status Exam: General Appearance: Patient appears to be thin, elderly, stated age is alert,more directable today, not irritable. Patient appears to have fair hygiene and grooming wearing hospital gown wit improved eye contact. Behavior: Patient is calmly lying in bed without any agitated behavior Not irritable today. Speech: Patient's speech is fluent and nonpressured. [place] Mood/Affect: Patient reports their mood is "ok", affect is congruentAnd constricted Suicidality/Homicidality: Patient denies having any suicidal or homicidal ideation intent or plan. Perceptions: Patient denies any visual hallucinations and denies any auditory hallucinations Though content/process: not endorsing paranoia, more logical. rambles at times. [place]. Memory and concentration: AOX1-2, improving attention span. Cannot spell "WORLD" backwards Judgment and insight: Chronically poor, improiving mildly IMPRESSIONS: Psychosis unspecified History of dementia PLAN: -At this time psychiatry will sign off as patient is not meeting criteria for inpatient geriatric psych placement. She is okay to continue on with outpatient psychiatric care. -Delirium precautions recommended with patient including - avoiding use of narcotics and PATTERN GATER sedatives, limit anticholinergic medications when possible, frequent re-orientation, minimize use of restraints, open window shades during the day and close them at night -Would recommend the following medication changes/additions: Seroquel to 12.5 daily +25 mg daily at bedtime for mood stabilization/psychosis/sleep. increase Cymbalta 30 mg daily for mood/anxiety. melatonin to 10 mg daily at bedtime. Continue with Aricept as prescribed. BuSpar 7.5 mg 3 times a day when necessary for anxiety. -ok to discontinue 1:1 sitter as patient is not endorsing thoughts of self harm -roller shop utility worker to provide patient with outpatient mental health/psychiatry resources for appropriate follow up upon discharge -at this time psychiatry will sign off. -Please contact with any questions.
[2021-08-14] MEDS: metroNIDAZOLE 500 MG TAB PO SCH ×2 (17:38→22:01)
[2021-08-14] MEDS: DONEPEZIL 10 MG TAB PO SCH (22:01)
[2021-08-14] MEDS: MELATONIN 5 MG TABLET PO SCH (22:01)
[2021-08-15 01:39] VITALS: RESP 15
[2021-08-15] MEDS ORDERED: DULoxetine HCL 30 MG CAPSULE.DR PO SCH (09:00)
[2021-08-15] MEDS: MULTIVITAMINS, THERA 1 EACH TAB PO SCH (09:15)
[2021-08-15] MEDS: QUEtiapine 25 MG TAB PO SCH (09:15)
[2021-08-15] MEDS: levETIRAcetam 500 MG TAB PO SCH (09:15)
[2021-08-15] MEDS: LOSARTAN 25 MG TAB PO SCH (09:15)
[2021-08-15] MEDS: ASPIRIN 81 MG PO SCH (09:15)
[2021-08-15] MEDS: ATORVASTATIN 10 MG TAB PO SCH (09:15)
[2021-08-15] MEDS: METOPROLOL SUCCINATE (ER) 25 MG TAB.ER.24H PO SCH (09:15)
[2021-08-15] MEDS: CLOPIDOGREL 75 MG TAB PO SCH (09:15)
[2021-08-15] MEDS: metroNIDAZOLE 500 MG TAB PO SCH ×2 (09:15→13:54)
[2021-08-15] MEDS: HEPARIN SODIUM,PORCINE/PF 5,000 UNIT/0.5 ML SYRINGE SQ SCH (09:16)
[2021-08-15] MEDS: PANTOPRAZOLE 40 MG/10 ML VIAL IVP SCH (09:16)
[2021-08-15] MEDS: FLUTICASONE 50MCG/SPRAY NASAL 16GM EA NOSTRIL SCH (09:17)
[2021-08-15 15:30] VITALS: BP 101/54; PULSE 69; TEMP 98.3
== END 2021-08-15 16:03 | disposition home health service (06) | DRG 392 ==
LOC: EC 10:20 → 4SSUR 14:51
PROVIDERS: ADMIT Internal Medicine Geriatric Medicine; ATTEND Internal Medicine Geriatric Medicine
DX: K57.32 Diverticulitis of large intestine without perforation or abscess without bleeding (principal); F23 Brief psychotic disorder; F03.90 Unspecified dementia, unspecified severity, without behavioral disturbance, psychotic disturbance, mood disturbance, and anxiety; G40.909 Epilepsy, unspecified, not intractable, without status epilepticus; F32.A Depression, unspecified; E86.0 Dehydration; E78.5 Hyperlipidemia, unspecified; I10 Essential (primary) hypertension; K21.9 Gastro-esophageal reflux disease without esophagitis; F41.9 Anxiety disorder, unspecified; I25.2 Old myocardial infarction; Z79.82 Long term (current) use of aspirin; Z79.02 Long term (current) use of antithrombotics/antiplatelets; Z79.899 Other long term (current) drug therapy; Z90.49 Acquired absence of other specified parts of digestive tract; Z87.19 Personal history of other diseases of the digestive system; Z85.22 Personal history of malignant neoplasm of nasal cavities, middle ear, and accessory sinuses; Z90.89 Acquired absence of other organs; Z98.51 Tubal ligation status; Z98.890 Other specified postprocedural states; Z88.2 Allergy status to sulfonamides; Z88.8 Allergy status to other drugs, medicaments and biological substances; Z82.49 Family history of ischemic heart disease and other diseases of the circulatory system; Z80.9 Family history of malignant neoplasm, unspecified; Z81.8 Family history of other mental and behavioral disorders
CPT/HCPCS: 36415; 70450; 71046; 74177; 80053; 80320; 82075; 82140; 82550; 83690; 84484; 85025; 85027; 87324; 93005; 96365; 99285

== ENCOUNTER 2021-10-08 13:49 | Emergency (ER) | payer MEDICARE ==
[2021-10-08] MEDS ORDERED: ALPRAZolam 0.25 MG TAB PO STA (22:46)
--- NOTE | 2021-10-08 22:46 | ED ---
General Adult HPI - General Stated complaint: Mental Health Time Seen by Provider: 10/08/21 22:25 Limitations: no limitations - History of Present Illness Initial comments: Patient is 80-year-old woman here with . He states that he was told that she requires psychiatric evaluation. The patient had been admitted in [facility] for number weeks related to what sounds like mood disorder. She had arrived home and then the patient's states that he was told she had to have an evaluation here. Patient states that she is not feeling suicidal. No homicidal ideation. They deny hallucinations. Onset/Timin -: days(s) Severity scale (1-10): 0 Improves with: none Worsens with: none Associated Symptoms: denies other symptoms - Related Data Home Medications Medication Instructions Recorded Confirmed Aspirin EC [Ecotrin Low Dose] 81 mg PO DAILY 08/12/21 08/12/21 Atorvastatin Calcium [Lipitor] 10 mg PO DAILY 08/12/21 08/12/21 Clopidogrel Bisulfate [Plavix] 75 mg PO DAILY 08/12/21 08/12/21 Donepezil [Aricept] 10 mg PO HS 08/12/21 08/12/21 Fluticasone Nasal [place] [Flonase 1 spr EA NOSTRIL DAILY 08/12/21 08/12/21 Nasal [place]] Losartan [Cozaar] 25 mg PO BID 08/12/21 08/12/21 Melatonin 6 mg PO HS 08/12/21 08/12/21 Metoprolol Succinate [Toprol XL] 25 mg PO DAILY 08/12/21 08/12/21 Multivitamins, Thera [Multivitamin 1 tab PO DAILY 08/12/21 08/12/21 (formulary)] levETIRAcetam [Keppra] 500 mg PO BID 08/12/21 08/12/21 Previous Rx's Medication Instructions Recorded DULoxetine HCL [Cymbalta] 20 mg PO DAILY #30 cap 08/14/21 QUEtiapine [SEROquel] 25 mg PO HS #45 tab 08/14/21 busPIRone HCl [Buspar] 5 mg PO BID #60 tab 08/14/21 metroNIDAZOLE [Flagyl] 500 mg PO TID #21 tab 08/14/21 Allergies Allergy/AdvReac Type Severity Reaction Status Date / Time montelukast [From Singulair] Allergy Anaphylaxis Verified 08/12/21 10:29 sulfamethoxazole Allergy Anaphylaxis Verified 08/12/21 10:29 [From Bactrim] trimethoprim [From Bactrim] Allergy Anaphylaxis Verified 08/12/21 10:29 Review of Systems ROS Statement: Those systems with pertinent positive or pertinent negative responses have been documented in the HPI. ROS Other: All systems not noted in ROS Statement are negative. Constitutional: Denies: fever Eyes: Denies: vision change Respiratory: Denies: cough, dyspnea Cardiovascular: Denies: chest pain, palpitations Gastrointestinal: Denies: abdominal pain, vomiting, diarrhea Genitourinary: Denies: dysuria Musculoskeletal: Denies: back pain Skin: Denies: rash Neurological: Denies: headache, weakness Psychiatric: Denies: auditory hallucinations, visual hallucinations, homicidal thoughts, suicidal thoughts Past Medical History Past Medical History: Dementia, Hyperlipidemia Additional Past Medical History / Comment(s): seizure 5-6weeks ago History of Any Multi-Drug Resistant Organisms: None Reported Past Surgical History: Appendectomy, Orthopedic Surgery, Tonsillectomy, Tubal Ligation Additional Past Surgical History / Comment(s): sinus cancerous polyps Past Psychological History: No Psychological Hx Reported Smoking Status: Never smoker Past Alcohol Use History: None Reported Past Drug Use History: None Reported General Exam General appearance: alert, in no apparent distress Head exam: Present: atraumatic, normocephalic Eye exam: Present: normal appearance. Absent: scleral icterus, conjunctival injection Neck exam: Present: normal inspection Respiratory exam: Present: normal lung sounds bilaterally. Absent: respiratory distress, wheezes, rales, rhonchi, stridor Cardiovascular Exam: Present: regular rate, normal rhythm, normal heart sounds. Absent: systolic murmur, diastolic murmur, rubs, gallop GI/Abdominal exam: Present: soft. Absent: distended, tenderness, guarding, rebound, rigid, mass Extremities exam: Present: normal inspection, normal capillary refill. Absent: pedal edema, calf tenderness Back exam: Present: normal inspection. Absent: CVA tenderness (R), CVA tende rness (L) Neurological exam: Present: alert. Absent: oriented X3 (Patient is oriented to person and place did not know the exact date.), motor sensory deficit Skin exam: Present: warm, dry, intact, normal color. Absent: rash Course Vital Signs 10/08/21 23:35 Temperature 98.4 F Pulse Rate 82 Respiratory 18 Rate Blood Pressure 136/76 O2 Sat by Pulse 99 Oximetry Disposition Clinical Impression: Mood disorder Disposition: HOME SELF-CARE Condition: Good Instructions (If sedation given, give patient instructions): Mood Disorders (ED) Is patient prescribed a controlled substance at d/c from ED?: No Referrals: Andrew Storey MD [Primary Care Provider] - 1-2 days
[2021-10-08 23:36] VITALS: BP 136/76; PULSE 82; RESP 18; TEMP 98.4
[2021-10-09] MEDS ORDERED: levETIRAcetam 500 MG TAB PO STA (00:45)
== END 2021-10-09 01:13 | disposition home or self-care (01) ==
LOC: EC 13:49
DX: F39 Unspecified mood [affective] disorder (principal); E78.5 Hyperlipidemia, unspecified; F03.90 Unspecified dementia, unspecified severity, without behavioral disturbance, psychotic disturbance, mood disturbance, and anxiety; Z79.82 Long term (current) use of aspirin; Z79.02 Long term (current) use of antithrombotics/antiplatelets; Z79.899 Other long term (current) drug therapy
CPT/HCPCS: 99283